=== PATIENT | male | born 1995 | race Caucasian/White ===

== ENCOUNTER 2019-10-20 21:08 | Emergency (ER) | payer OTHER ==
[2019-10-20 21:22] VITALS: BP 129/78
--- NOTE | 2019-10-20 21:38 | UC ---
Respiratory Complaint HPI - HPI Summary HPI Summary: Is a 24-year-old male with about a day and a half history of nasal congestion cough and chills. He has not had a documented fever. He denies any headache or myalgias. He is here because he wants to make sure he does not have the flu. He denies any chest pain or shortness of breath. He has no nausea vomiting or diarrhea. - History of Current Complaint Chief Complaint: UCRespiratory Stated Complaint: FLU LIKE SYMPTOMS Time Seen by Provider: 10/20/19 21:37 Hx Obtained From: Patient Onset/Duration: Gradual Onset Timing: Constant Severity Initially: Moderate Severity Currently: Moderate Pain Intensity: 5 Pain Scale Used: 0-10 Numeric Character: Cough: Nonproductive Aggravating Factors: Nothing Alleviating Factors: Nothing Associated Signs And Symptoms: Positive: Negative - Allergies/Home Medications Allergies/Adverse Reactions: Allergies Allergy/AdvReac Type Severity Reaction Status Date / Time No Known Allergies Allergy Verified 10/20/19 21:22 Home Medications: Home Medications D-Methorphan/PE/Acetaminophen [Vicks Dayquil Liquicaps] 2 each PO PRN 10/20/19 [ History] PMH/Surg Hx/FS Hx/Imm Hx Previously Healthy: Yes - Surgical History Surgical History: Yes Surgery Procedure, Year, and Place: patellar tendon replacement left knee, appendectomy - Family History Known Family History: Positive: Hypertension - Social History Alcohol Use: Occasionally Substance Use Type: Marijuana Smoking Status (MU): Never Smoked Tobacco Review of Systems All Other Systems Reviewed And Are Negative: Yes Constitutional: Positive: Negative Skin: Positive: Negative Eyes: Positive: Negative ENT: Positive: Nasal Discharge, Sinus Congestion, Sinus Pain/Tenderness Respiratory: Positive: Cough Cardiovascular: Positive: Negative Gastrointestinal: Positive: Negative Genitourinary: Positive: Negative Motor: Positive: Negative Neurovascular: Positive: Negative Musculoskeletal: Positive: Negative Neurological/Mental Status: Positive: Negative Psychological: Positive: Negative Physical Exam Triage Information Reviewed: Yes Appearance: Well-Appearing, No Pain Distress, Well-Nourished Vital Signs: Initial Vital Signs Temp 98.5 F 10/20/19 21:18 Pulse 77 10/20/19 21:18 Resp 16 10/20/19 21:18 BP 129/78 10/20/19 21:18 Pulse Ox 97 10/20/19 21:18 Vital Signs Reviewed: Yes Eyes: Positive: Conjunctiva Clear ENT: Positive: Hearing grossly normal, Pharynx normal, Nasal congestion, Nasal drainage. Negative: Tonsillar swelling, Tonsillar exudate, Hoarse voice, Dental tenderness, Sinus tenderness, Uvula midline Dental Exam: Normal Neck: Positive: Supple, Nontender, No Lymphadenopathy Respiratory: Positive: Lungs clear, Normal breath sounds, No respiratory distress, No accessory muscle use Cardiovascular: Positive: RRR, No Murmur Bowel Sounds: Positive: Present Musculoskeletal: Positive: ROM Intact, No Edema Neurological: Positive: Alert Psychological Exam: Normal Skin Exam: Normal Respiratory Course/Dx - Course Course Of Treatment: influenza (-) - Differential Dx/Diagnosis Provider Diagnosis: Acute upper respiratory infection Discharge ED - Sign-Out/Discharge Documenting (check all that apply): Patient Departure All imaging exams completed and their final reports reviewed: No Studies - Discharge Plan Condition: Stable Disposition: HOME Patient Education Materials: Upper Respiratory Infection (ED) Referrals: No Primary Care Phys,NOPCP [Primary Care Provider] - Additional Instructions: influenza test (-) rest fluids afrin mucinex recheck for new or worsening symptoms - Billing Disposition and Condition Condition: STABLE Disposition: Home
[2019-10-20 21:45] LABS: Influenza A Molecular Negative (Negative); Influenza B Molecular Negative (Negative)
== END 2019-10-20 22:00 | disposition home or self-care (01) ==
LOC: UCEAST 21:08
DX: J06.9 Acute upper respiratory infection, unspecified (principal)
CPT/HCPCS: 99201; G0463